=== PATIENT | female | born 1955 | race Caucasian/White ===

== ENCOUNTER → 2023-06-25 08:41 | Outpatient (BNVA) | payer OTHER, SELFPAY | PROVIDERS: PCP Family Medicine; Visit Provider Internal Medicine | DX: R94.6 Abnormal results of thyroid function studies (principal); E06.3 Autoimmune thyroiditis; E03.9 Hypothyroidism, unspecified; E21.0 Primary hyperparathyroidism | CPT/HCPCS: 82306; 84439; 84443 ==

== ENCOUNTER 2023-07-17 08:48 | Outpatient (CLI) | payer MEDICARE, SELFPAY ==
--- NOTE | 2023-07-17 09:30 | NM_ITS ---
WS: [id number] EXAMINATION: NM parathyroid [id number] ORDER DATE: 07/17/2023 8:54 AM COMPARISON: None HISTORY: Primary hyperparathyroidism TECHNIQUE: Parathyroid scintigraphy with 20.1 mCi of technetium 99 M sestamibi administered. AP and o blique views obtained with and without chin and suprasternal notch markers. Initial and 2 hour delayed imagi ng acquired. FINDINGS: Normal salivary gland uptake. Bilateral thyroid uptake with normal washout on the delayed imaging. No retained foci to indicate parathyroid adenoma. IMPRESSION: 1. No evidence of parathyroid adenoma.
== END 2023-07-17 08:49 | disposition home or self-care (01) ==
PROVIDERS: PCP Family Medicine; Visit Provider Internal Medicine
DX: E21.0 Primary hyperparathyroidism (principal)
CPT/HCPCS: 78070; 82306; 84439; 84443; A9500

== ENCOUNTER → 2023-09-07 10:01 | Outpatient (BNVA) | payer MEDICARE, SELFPAY | PROVIDERS: PCP Family Medicine; Visit Provider Internal Medicine | DX: E06.3 Autoimmune thyroiditis (principal); K52.9 Noninfective gastroenteritis and colitis, unspecified; R94.6 Abnormal results of thyroid function studies; E21.0 Primary hyperparathyroidism; Z79.890 Hormone replacement therapy | CPT/HCPCS: 99214 ==